=== PATIENT | female | born 1950 | race Caucasian/White ===

== ENCOUNTER 2020-11-09 19:28 | Emergency (ER) | payer BC, MEDICARE ==
[~2020-11-09 19:28] MED LIST: DITROPAN XL15 MG PO; IRON325 M1 PO; LANTUS SOL100 UNIT/1 SQ; METOPROLOL TART25 MG PO; PIOGLITAZONE HC45 MG PO; SIMVASTATIN40 MG PO; TRAMADOL HCL50 MG PO; VITAMIN D5000 UNIT PO
[2020-11-09] MEDS ORDERED: LOTRIMIN CREAM45 GM TP (21:08)
== END 2020-11-09 21:35 | disposition home or self-care (01) ==
LOC: ER1 19:28
DX: B35.6 Tinea cruris (principal); E11.9 Type 2 diabetes mellitus without complications; I10 Essential (primary) hypertension
CPT/HCPCS: 99283

== ENCOUNTER 2020-11-28 03:55 | Inpatient (IN) | payer BC, MEDICARE ==
[~2020-11-28] VITALS: Ht 165.1 cm; Wt 164.7 kg
[~2020-11-28 03:55] MED LIST changes: +LOTRIMIN CREAM45 GM TP
[2020-11-28 04:35] LABS: HEMOGLOBIN 13.1 gm/dl (12.3-15.3); RED BLOOD COUNT 4.25 M/UL (4.00-5.10); WHITE BLOOD COUNT 8.1 K/UL (4.5-11.0)
[2020-11-28] MEDS ORDERED: NEURONTIN 100100 MG PO (08:06)
[2020-11-28] MEDS ORDERED: LEVOTHYROXINE25 MCG PO (08:07)
[2020-11-28] MEDS ORDERED: PAROXETINE HCL30 MG PO (08:09)
[2020-11-28] MEDS ORDERED: ATORVASTATIN CA40 MG PO (11:04)
[2020-11-28] MEDS ORDERED: TEMOVATE60 GM TOP (11:06)
[2020-11-28] MEDS ORDERED: BASAGLAR K100 UNIT/1 SQ (11:07)
[2020-11-28] MEDS ORDERED: DILTIAZEM HCL120 MG PO (11:08)
[2020-11-28] MEDS ORDERED: MONTELUKAST SOD10 MG PO (11:09)
[2020-11-28] MEDS ORDERED: VICTOZA 3-0.6 MG/0.1 SQ (11:10)
[2020-11-28] MEDS ORDERED: TYLENOL EXTRA500 MG PO (11:13)
[2020-11-29 04:40] LABS: HEMOGLOBIN 13.1 gm/dl (12.3-15.3); RED BLOOD COUNT 4.23 M/UL (4.00-5.10); WHITE BLOOD COUNT 6.7 K/UL (4.5-11.0)
--- NOTE | 2020-11-29 19:59 | NUR ---
STAFF ATTEMPTED TO PERFORM PITO CARE ON PATIENT. RN RECEIVED A PHONE CALL FROM TELEMETRY SAYING PATIENT'S OXYGEN SATURATION WAS RUNNING IN THE 70'S. RN AND STAFF TITRATED OXYGEN AND POSITIONED PATIENT INTO A HIGH ADHIKARI'S POSITION. OXYGEN SATURATION INCREASED TO 88% THEN RN CALLED RT. RT PLACED PATIENT ON 10 L HIGH FLOW OXYGEN, PATIENT CURRENTLY READING 92%. RN NOTIFIED DR. GILL WHO ORDERED A CHEST X-RAY AND ABG. PATIENT ENCOURAGED TO DEEP BREATHE AND UTILIZE INCENTIVE SPIROMETER. NO S/SX OF DISTRESS NOTED. BED LOCKED AND LOW. CALL LIGHT WITHIN REACH.
[2020-11-30 06:22] LABS: HEMOGLOBIN 13.1 gm/dl (12.3-15.3); RED BLOOD COUNT 4.29 M/UL (4.00-5.10); WHITE BLOOD COUNT 6.1 K/UL (4.5-11.0)
[2020-12-01 03:32] LABS: HEMOGLOBIN 14.1 gm/dl (12.3-15.3); RED BLOOD COUNT 4.61 M/UL (4.00-5.10); WHITE BLOOD COUNT 6.6 K/UL (4.5-11.0)
--- NOTE | 2020-12-01 10:47 | NUR ---
Per smokehouse operator ok to put patient on bipap on floor due to no pcu beds. PCU bed request pending.
[2020-12-02 04:49] LABS: HEMOGLOBIN 14.5 gm/dl (12.3-15.3); RED BLOOD COUNT 4.68 M/UL (4.00-5.10); WHITE BLOOD COUNT 7.9 K/UL (4.5-11.0)
[2020-12-03 03:19] LABS: HEMOGLOBIN 13.7 gm/dl (12.3-15.3); RED BLOOD COUNT 4.47 M/UL (4.00-5.10)
[2020-12-03 03:25] LABS: WHITE BLOOD COUNT 11.7 K/UL (4.5-11.0)
--- NOTE | 2020-12-03 19:12 | NUR ---
PT ARRIVED TO ICU APPROX 1630. PLACED ON MONITORING EQUIPTMENT. CENTRAL LINE ATTEMPTED X2 BY DR. LARA. CETRAL LINE THEN ATTEMPTED X1 BY dR. KURSE. LINE PLACED TO RIGHT NECK. VERIFIED BY XRAY. PT TOLERATED WELL. BP DROPPED TO MAP OF 63. ORDER OBTAINED FOR LEVO. PT CURRENTLY ON BIPAP AT 75% SAT 99%. NO RESPIRATORY DISTRESS NOTED. LEVO CURRENTLY INFUSING AT 5. WILL CONTINUE TO MONITOR.
[2020-12-04 06:10] LABS: RED BLOOD COUNT 3.1 M/UL (4.00-5.10); WHITE BLOOD COUNT 26.8 K/UL (4.5-11.0)
[2020-12-04 06:12] LABS: HEMOGLOBIN 9.3 gm/dl (12.3-15.3)
[2020-12-04 20:36] LABS: HEMOGLOBIN 7.3 gm/dl (12.3-15.3); RED BLOOD COUNT 2.42 M/UL (4.00-5.10); WHITE BLOOD COUNT 37.1 K/UL (4.5-11.0)
[2020-12-05 01:55] LABS: HEMOGLOBIN 5.2 gm/dl (12.3-15.3); RED BLOOD COUNT 1.69 M/UL (4.00-5.10); WHITE BLOOD COUNT 34.2 K/UL (4.5-11.0)
[2020-12-06 08:14] LABS: HBSAG SCREEN Negative (Negative); HEP A AB, IGM Negative (Negative); HEP B CORE AB, IGM Negative (Negative); HEP C VIRUS AB <0.1 (0.0-0.9)
== END 2020-12-05 03:03 | disposition expired | DRG 208 ==
LOC: ER1 03:55 → CDU 05:41 → CCU 05:41 → MED SURG 4 19:36 → PROG CARE 12-01 15:21 → CCU 12-03 16:37
PROVIDERS: Internal Medicine; Internal Medicine Nephrology; Physician Assistant; ADMIT Internal Medicine
PROC: XW033E5 Introduction of Remdesivir Anti-infective into Peripheral Vein, Percutaneous Approach, New Technology Group 5 (ICD-10-PCS; principal; 2020-11-28)
PROC: 3E0333Z Introduction of Anti-inflammatory into Peripheral Vein, Percutaneous Approach (ICD-10-PCS; 2020-11-28)
PROC: 5A09557 Assistance with Respiratory Ventilation, Greater than 96 Consecutive Hours, Continuous Positive Airway Pressure (ICD-10-PCS; 2020-11-28)
PROC: 3E033XZ Introduction of Vasopressor into Peripheral Vein, Percutaneous Approach (ICD-10-PCS; 2020-12-01)
PROC: 05HM33Z Insertion of Infusion Device into Right Internal Jugular Vein, Percutaneous Approach (ICD-10-PCS; 2020-12-03)
PROC: 0BH18EZ Insertion of Endotracheal Airway into Trachea, Via Natural or Artificial Opening Endoscopic (ICD-10-PCS; 2020-12-04)
PROC: 5A1945Z Respiratory Ventilation, 24-96 Consecutive Hours (ICD-10-PCS; 2020-12-04)
DX: U07.1 COVID-19 (principal); A41.89 Other specified sepsis; J12.82 Pneumonia due to coronavirus disease 2019; G93.41 Metabolic encephalopathy; J15.9 Unspecified bacterial pneumonia; J80 Acute respiratory distress syndrome; I21.A1 Myocardial infarction type 2; N17.0 Acute kidney failure with tubular necrosis; R65.21 Severe sepsis with septic shock; N17.9 Acute kidney failure, unspecified; M62.82 Rhabdomyolysis; E66.01 Morbid (severe) obesity due to excess calories; R77.8 Other specified abnormalities of plasma proteins; D69.6 Thrombocytopenia, unspecified; G47.33 Obstructive sleep apnea (adult) (pediatric); E11.65 Type 2 diabetes mellitus with hyperglycemia; I45.10 Unspecified right bundle-branch block; I12.9 Hypertensive chronic kidney disease with stage 1 through stage 4 chronic kidney disease, or unspecified chronic kidney disease; E78.5 Hyperlipidemia, unspecified; N18.30 Chronic kidney disease, stage 3 unspecified; E11.22 Type 2 diabetes mellitus with diabetic chronic kidney disease; Z98.890 Other specified postprocedural states; Z79.899 Other long term (current) drug therapy; Z83.3 Family history of diabetes mellitus; Z82.49 Family history of ischemic heart disease and other diseases of the circulatory system
CPT/HCPCS: ECHO; 36415; 36600; 51701; 71045; 80048; 80053; 80061; 80074; 80202; 81001; 82009; 82550; 82553; 82570; 82728; 82803; 82962; 83036; 83605; 83615; 83735; 83874; 83880; 84100; 84133; 84156; 84300; 84484; 85007; 85025; 85027; 85652; 86140; 87040; 92950; 93005; 93306; 94003; 94640; 94660; 94664; 94760; 99285; C9113; J0330; J0360; J0456; J0696; J1100; J1644; J1650; J1940; J2060; J2185; J2250; J2270; J2370; J3370; J3486; J7030; J7070; P9047; Q0177; U0002